=== PATIENT | male | born 1965 | race Caucasian/White ===

== ENCOUNTER 2022-01-03 22:49 | Inpatient (IN) | payer BC ==
[~2022-01-03] VITALS: Ht 167.6 cm; Wt 72.5 kg
[~2022-01-03 22:49] MED LIST: Prinivil10 MG PO
[2022-01-03 23:30] LABS: BASOPHILS ABSOLUTE AUTO 0.08 K/mm3 (0.00-0.23); BASOPHILS PERCENT AUTO 1 % (0-2); EOSINOPHILS ABSOLUTE AUTO 0.16 K/mm3 (0.00-0.68); EOSINOPHILS PERCENT AUTO 2 % (0-6); Hematocrit 48.9 % (37.0-53.0); Hemoglobin 16.4 g/dL (13.5-17.5); IMMATURE GRAN ABSOLUTE AUTO 0.03 K/mm3 (0.00-0.10); IMMATURE GRAN PERCENT AUTO 0 % (0-1); LYMPHOCYTES ABSOLUTE AUTO 3.45 K/mm3 (0.84-5.20); LYMPHOCYTES PERCENT AUTO 32 % (21-46); MONOCYTES ABSOLUTE AUTO 1.23 K/mm3 (0.16-1.47); MONOCYTES PERCENT AUTO 12 % (4-13); Mean Corpuscular HGB 31.1 pg (26.0-34.0); Mean Corpuscular HGB Conc 33.5 g/dL (31.5-36.5); Mean Corpuscular Volume 93 fL (80-100); Mean Platelet Volume 9.9 fL (9.1-12.4); NEUTROPHILS ABSOLUTE AUTO 5.77 K/mm3 (1.96-9.15); NEUTROPHILS PERCENT AUTO 54 % (41-73); Platelet Count 212 K/mm3 (150-400); RDW Coefficient Variation 11.9 % (11.7-14.2); RDW Standard Deviation 40.5 fL (35.1-46.3); Red Blood Cell Count 5.27 M/mm3 (4.30-5.90); White Blood Cell Count 10.72 K/mm3 (4.00-11.30)
[2022-01-03 23:48] LABS: Albumin, Blood 3.8 g/dL (3.4-5.0); Bilirubin, Total 0.6 mg/dL (0.1-1.0); Calcium, Blood 9.3 mg/dL (8.5-10.1); Creatinine, Blood 0.83 mg/dL (0.60-1.20); Globulin, Blood 3.7 g/dL (2.2-4.0); Potassium, Blood 3.6 mmol/L (3.5-5.5); Total Protein, Blood 7.5 g/dL (6.4-8.2)
--- NOTE | 2022-01-04 06:19 | NUR ---
SHIFT SUMMARY: GENERAL: PATIENT ARRIVES IN STABLE CONDITION TO UNIT FROM ED AT APPROX 0415. NEURO: ORIENTED, VERY PLEASANT. AFEBRILE. DENIES PAIN OR PARESTHESIA. CARDS: SR; BASELINE HTN. PRN HYDRALAZINE FOR SBP >160. NO EDEMA NOTED. RESP: SPO2 >90% ON RA, LS CLEAR AND DIMINISHED IN BASES. MSK: DEMONSTRATES ADEQUATE STRENGTH AMBULATING. SBA W/INTERMITTENT DIZZINESS. INTEG: WDL, NO CONCERNS. LOW RISK MIN. GI/: REPORTS BM 01/03; VOIDING WDL. OTHER: BIPAP AT BEDSIDE. PT DECLINED FLU VACCINE.
--- NOTE | 2022-01-04 17:18 | NUR ---
SHIFT SUMMARY NO ACUTE CHANGES THIS SHIFT. PT REMAINS AWAKE, ALERT, AND ORIENTED. PT HAS DENIED ANY DIFFICULTY BREATHING OR WEAKNESS. VITAL SIGNS STABLE. PT HAS REMAINED ON ROOM AIR THROUGHOUT THE SHIFT. PT UP TO TOILET WITH SBA. PT REPOSITIONS SELF IN BED INDEPENDENTLY. IV SALINE LOCKED. PT TAKING PO INTAKE WELL. FAMILY AT BEDSIDE THIS AFTERNOON. WILL CONTINUE TO MONITOR AND REPORT OFF TO ONCOMING RN.
--- NOTE | 2022-01-04 19:00 | NUR ---
ASSUMED CARE ASSUMED CARE OF PATIENT. AWAKE AND ALERT, VISITING WITH FAMILY. ORIENTED X 3 AND COOPERATIVE WITH CARE. UP TO BR WITH STANDBY ASSIST. C/O MILD WEAKNESS, BUT GAIT IS STEADY. DENIES C/O PAIN OR DISCOMFORT. RESPIRATIONS EVEN AND UNLABORED. RA SATS STABLE. MONITOR SHOWS NSR, RATE 60-70s. BP STABLE. SEE SHIFT ASSESSMENT FOR FULL ASSESSMENT.
--- NOTE | 2022-01-05 06:39 | NUR ---
SHIFT SUMMARY NO ACUTE CHANGES DURING NOC. SLEPT WHEN UNDISTURBED. RA SATS STABLE AND RESPIRATIONS ARE EVEN AND UNLABORED. BP STABLE. HR 50s-70s. AFEBRILE. UP TO TOILET INDEPENDENTLY WITHOUT DIFFICULTY. DENIES C/O PAIN OR DISCOMFORT. WILL REPORT TO ONCOMING RN WHEN AVAILABLE.
--- NOTE | 2022-01-05 09:14 | NUR ---
Assumed care of pt at 0700. Report received from Marcela CASTILLO. Pt A&O x 4. Answers questions, follows commands, verbalizes needs. Pleasant and cooperative with care. SpO2 90% or greater RA. Pt states he is feeling back to his usual self and sets goal to take a shower and ambulate around unit today.
--- NOTE | 2022-01-05 15:46 | NUR ---
Reached out to Dr López as he has not been in to see patient today. Patient updated. Patient denies need at this time. SpO2 90% or greater RA. BP and HR stable. Care transferred to Ronit CASTILLO.
--- NOTE | 2022-01-05 18:09 | NUR ---
SHIFT SUMMARY NO ACUTE CHANGES SINCE REPORT FROM KEERTHI CASTILLO. PT AMB TO SHOWER s DIFFICULTY. VISITING c FAMILY. DENIES NEEDS. WILL CONTINUE TO MONITOR UNTIL REPORT TO ONCOMING NURSE.
[2022-01-06 03:49] LABS: BASOPHILS ABSOLUTE AUTO 0.03 K/mm3 (0.00-0.23); BASOPHILS PERCENT AUTO 0 % (0-2); EOSINOPHILS PERCENT AUTO 0 % (0-6); Hematocrit 44.2 % (37.0-53.0); IMMATURE GRAN ABSOLUTE AUTO 0.09 K/mm3 (0.00-0.10); IMMATURE GRAN PERCENT AUTO 0 % (0-1); LYMPHOCYTES ABSOLUTE AUTO 1.23 K/mm3 (0.84-5.20); LYMPHOCYTES PERCENT AUTO 6 % (21-46); MONOCYTES PERCENT AUTO 3 % (4-13); Mean Corpuscular HGB 31.2 pg (26.0-34.0); Mean Corpuscular HGB Conc 33.9 g/dL (31.5-36.5); Mean Corpuscular Volume 92 fL (80-100); Mean Platelet Volume 10.8 fL (9.1-12.4); NEUTROPHILS ABSOLUTE AUTO 19.17 K/mm3 (1.96-9.15); NEUTROPHILS PERCENT AUTO 91 % (41-73); Platelet Count 178 K/mm3 (150-400); RDW Coefficient Variation 11.9 % (11.7-14.2); RDW Standard Deviation 40.1 fL (35.1-46.3); Red Blood Cell Count 4.81 M/mm3 (4.30-5.90); White Blood Cell Count 21.12 K/mm3 (4.00-11.30)
[2022-01-06 04:06] LABS: Albumin, Blood 2.9 g/dL (3.4-5.0); Albumin/Globulin Ratio 0.8 (0.8-1.8); Bilirubin, Total 0.7 mg/dL (0.1-1.0); Bun/Creatinine Ratio 40.1 (12.0-20.0); Calcium, Blood 8.9 mg/dL (8.5-10.1); Creatinine, Blood 0.85 mg/dL (0.60-1.20); Globulin, Blood 3.8 g/dL (2.2-4.0); Magnesium, Blood 2.3 mg/dL (1.6-2.4); Potassium, Blood 3.9 mmol/L (3.5-5.5); Total Protein, Blood 6.7 g/dL (6.4-8.2)
--- NOTE | 2022-01-06 05:28 | NUR ---
NO EVENTS OVERNIGHT. PT VSS. PT SLEEPING MOST OF THE NIGHT. NO DIZZINESS OR INCREASE OF WEAKNESS.
--- NOTE | 2022-01-06 07:15 | NUR ---
Assumed care at 0700. Report received from Petrona CASTILLO. Pt A&O x 4. Answers questions, follows commands, verbalizes needs. Pleasant and cooperative with care. SpO2 90% or greater RA. Respirations even and unlabored.
[2022-01-06] MEDS ORDERED: LISINOPRIL-HCT1 EAC1 PO (13:06)
[2022-01-06] MEDS ORDERED: PYRI60 PO (13:07)
--- NOTE | 2022-01-06 14:41 | NUR ---
Patient discharged from unit at 1320 accompanied by family member. Orders given by Dr López. Pt provided with return to work note for Monday. Prescription for pyridostigmine faxed to [facility] in [place], [place], per patient request as he has had trouble obtaining this medication in [facility]. IV access removed. Education provided.
== END 2022-01-06 13:20 | disposition home or self-care (01) | DRG 56 ==
LOC: ER 22:49 → ICUW 01-04 03:37 → ICUE 01-04 03:37
PROVIDERS: Emergency Medicine; Internal Medicine; ADMIT Internal Medicine
PROC: 5A09357 Assistance with Respiratory Ventilation, Less than 24 Consecutive Hours, Continuous Positive Airway Pressure (ICD-10-PCS; principal; 2022-01-04)
DX: G70.01 Myasthenia gravis with (acute) exacerbation (principal); J96.01 Acute respiratory failure with hypoxia; I10 Essential (primary) hypertension; E78.5 Hyperlipidemia, unspecified; L80 Vitiligo; M19.09 Primary osteoarthritis, other specified site; Z79.811 Long term (current) use of aromatase inhibitors
CPT/HCPCS: 36415; 71045; 80053; 83735; 83880; 84484; 85025; 93005; 93010; 94660; 96372; 96374; 99285-25; A9270; J1100; J1569; J1650; J2930

== ENCOUNTER 2024-09-21 09:13 | Inpatient (IN) | payer BC ==
[~2024-09-21] VITALS: Ht 167.6 cm; Wt 78.0 kg
[~2024-09-21 09:13] MED LIST changes: +LISINOPRIL-HCT1 EAC1 PO; +PYRI60 PO
[2024-09-21 09:37] VITALS: BP 173/109
[2024-09-21 09:42] VITALS: BP 144/96
[2024-09-21] MEDS ORDERED: PRED5 PO (09:44)
[2024-09-21 10:57] LABS: BASOPHILS ABSOLUTE AUTO 0.06 K/mm3 (0.00-0.23); BASOPHILS PERCENT AUTO 1 % (0-2); EOSINOPHILS ABSOLUTE AUTO 0.06 K/mm3 (0.00-0.68); EOSINOPHILS PERCENT AUTO 1 % (0-6); Hematocrit 52.3 % (37.0-53.0); Hemoglobin 17.7 g/dL (13.5-17.5); IMMATURE GRAN ABSOLUTE AUTO 0.02 K/mm3 (0.00-0.10); IMMATURE GRAN PERCENT AUTO 0 % (0-1); LYMPHOCYTES ABSOLUTE AUTO 2.30 K/mm3 (0.84-5.20); LYMPHOCYTES PERCENT AUTO 26 % (21-46); MONOCYTES ABSOLUTE AUTO 0.87 K/mm3 (0.16-1.47); MONOCYTES PERCENT AUTO 10 % (4-13); Mean Corpuscular HGB Conc 33.8 g/dL (31.5-36.5); Mean Corpuscular Volume 92 fL (80-100); NEUTROPHILS ABSOLUTE AUTO 5.68 K/mm3 (1.96-9.15); NEUTROPHILS PERCENT AUTO 63 % (41-73); NRBC ABSOLUTE 0.00 K/mm3 (0.00-0.02); NRBC Auto 0.0 /100 WBC (0.0-0.2); Platelet Count 181 K/mm3 (150-400); RDW Coefficient Variation 11.9 % (11.7-14.2); RDW Standard Deviation 39.6 fL (35.1-46.3)
[2024-09-21] MEDS ORDERED: IMMUN GLOB G(IGG)/PRO/IGA 0-50 100 ML IV SCH (11:00)
[2024-09-21 11:17] VITALS: BP 150/96
[2024-09-21 12:37] LABS: Alanine Aminotransfer (ALT/SGP 36.0 U/L (12-78); Albumin, Blood 3.6 g/dL (3.4-5.0); Albumin/Globulin Ratio 1.1 (0.8-1.8); Anion Gap 7.0 mmol/L (3-11); Aspartate Aminotrans (AST/SGOT 27.0 U/L (12-37); Bilirubin, Total 0.6 mg/dL (0.1-1.0); Blood Urea Nitrogen 15.0 mg/dL (8-24); CO2, Blood 29.0 mmol/L (21-32); Calcium, Blood 8.9 mg/dL (8.5-10.1); Chloride, Blood 107.0 mmol/L (98-108); Creatinine, Blood 0.99 mg/dL (0.60-1.20); Globulin, Blood 3.3 g/dL (2.2-4.0); Glucose, Blood 102.0 mg/dL (70-99); Potassium, Blood 3.8 mmol/L (3.5-5.5); Sodium, Blood 139.0 mmol/L (136-145); Thyroid Stimulating Hormone 1.92 uIU/mL (0.360-4.800); Total Protein, Blood 6.9 g/dL (6.4-8.2)
[2024-09-21 15:34] VITALS: BP 148/94
--- NOTE | 2024-09-21 18:06 | NUR ---
DAY SHIFT SUMMARY MARINA ARRIVED TO THE UNIT AROUND 0930 - HERE FOR MG EXACERBATION. HX OF ICU AND BIPAP STAY WITH PREVIOUS ADMISSION. HE IS ORIENTED X4, VSS ON RA, SR ON TELEMETRY. DENIES PAIN OR DISCOMFORT. PLEASANT AND COOPERATIVE. GENERALIZED WEAKNESS T/O. ABLE TO MAKE NEEDS KNOWN. BED IN LOWEST POSITION, CALL LIGHT WITHIN RISK. S/O MEREDITH IN ROOM AND BOTH UPDATED ON PLAN OF CARE. IVIG GIVEN THIS SHIFT AND TOLERATED WELL.
[2024-09-21 19:53] VITALS: BP 140/93
[2024-09-21 23:54] VITALS: BP 136/100
[2024-09-22 03:54] VITALS: BP 142/103
[2024-09-22 05:10] LABS: BASOPHILS ABSOLUTE AUTO 0.08 K/mm3 (0.00-0.23); BASOPHILS PERCENT AUTO 1 % (0-2); EOSINOPHILS ABSOLUTE AUTO 0.17 K/mm3 (0.00-0.68); EOSINOPHILS PERCENT AUTO 2 % (0-6); Hematocrit 48.0 % (37.0-53.0); Hemoglobin 16.3 g/dL (13.5-17.5); IMMATURE GRAN ABSOLUTE AUTO 0.03 K/mm3 (0.00-0.10); IMMATURE GRAN PERCENT AUTO 0 % (0-1); LYMPHOCYTES ABSOLUTE AUTO 2.41 K/mm3 (0.84-5.20); LYMPHOCYTES PERCENT AUTO 30 % (21-46); MONOCYTES ABSOLUTE AUTO 1.27 K/mm3 (0.16-1.47); MONOCYTES PERCENT AUTO 16 % (4-13); Mean Corpuscular HGB Conc 34.0 g/dL (31.5-36.5); Mean Corpuscular Volume 92 fL (80-100); NEUTROPHILS ABSOLUTE AUTO 4.09 K/mm3 (1.96-9.15); NEUTROPHILS PERCENT AUTO 51 % (41-73); NRBC ABSOLUTE 0.00 K/mm3 (0.00-0.02); NRBC Auto 0.0 /100 WBC (0.0-0.2); Platelet Count 159 K/mm3 (150-400); RDW Coefficient Variation 11.9 % (11.7-14.2); RDW Standard Deviation 39.8 fL (35.1-46.3)
[2024-09-22 05:32] LABS: Alanine Aminotransfer (ALT/SGP 29.0 U/L (12-78); Albumin, Blood 3.3 g/dL (3.4-5.0); Albumin/Globulin Ratio 0.8 (0.8-1.8); Anion Gap 7.0 mmol/L (3-11); Aspartate Aminotrans (AST/SGOT 20.0 U/L (12-37); Bilirubin, Total 0.8 mg/dL (0.1-1.0); Blood Urea Nitrogen 13.0 mg/dL (8-24); CO2, Blood 27.0 mmol/L (21-32); Calcium, Blood 8.6 mg/dL (8.5-10.1); Chloride, Blood 107.0 mmol/L (98-108); Creatinine, Blood 0.97 mg/dL (0.60-1.20); Globulin, Blood 4.0 g/dL (2.2-4.0); Glucose, Blood 89.0 mg/dL (70-99); Magnesium, Blood 2.1 mg/dL (1.6-2.4); Potassium, Blood 3.4 mmol/L (3.5-5.5); Sodium, Blood 138.0 mmol/L (136-145); Total Protein, Blood 7.3 g/dL (6.4-8.2)
--- NOTE | 2024-09-22 06:07 | NUR ---
SHIFT SUMMARY PT ALERT AND ORIENTED X4, FOLLOWS COMMANDS, ABLE TO MAKE NEEDS KNOWN, DENIES C/O PAIN, SOB OR CP, VSS, AFEBRILE, RESP EVEN AND UNLABORED ON RA, AMBULATES TO BATHROOM WITHOUT ASSIST, GAIT STEADY, VOIDS WITHOUT DIFFICULTY, PIV TO RIGHT FA PATENT AND CLAMPED, SIDE RAILS UP X2, CALL LIGHT IN REACH
[2024-09-22 08:04] VITALS: BP 120/80
[2024-09-22] MEDS ORDERED: LISI20 PO (08:56)
[2024-09-22] MEDS ORDERED: Enoxaparin 40 MG/0.4 ML SYR SC SCH (09:00)
[2024-09-22 12:00] VITALS: BP 140/95
[2024-09-22 17:14] VITALS: BP 122/81
[2024-09-22 20:33] VITALS: BP 119/77
--- NOTE | 2024-09-22 22:14 | NUR ---
TRANSFER OF CARE NOTE REPORT GIVEN BY THIS RN TO MEDICAL FLOOR PRASANNA @ APPROX 2200. PT ESCORTED TO ROOM 361 BY MEDICAL STAFF @ APPROX 2210. PT IS A&O X4, TO ABLE TO MAKE NEEDS KNOWN, IND IN ROOM, REPOSITIONING SELF IN BED, DENIES ANY NUMBNESS T/O THIS SHIFT, REPORTS MILD GENERALIZED WEAKNESS. CONTINUOUS SPO2, SPO2 GREATER 90% ON RA, LUNGS SOUND CLEAR T/O, NO SIGNS OF RESPIRATORY DISTRESS, PT DENIES SOB OR DIFFICULTY BREATHING. HR 50-60 S, PULSES PRESENT T/O, PT DENEIS CHEST P/P T/O THIS SHIFT, BP STABLE WITH MAP GREATER THAN 65. BOWEL TONES PRESENT IN ALL 4Q, PT DENIES FEELINGS OF NAUSEA, OR CONSTIPATION. PT VOIDING IND TO BRP. BED LOWEST POSITION, CALL LIGHT IN REACH, AWAITING TO GIVE REPORT TO ONCOMING RN.
[2024-09-22 22:23] VITALS: BP 134/85
--- NOTE | 2024-09-22 22:44 | NUR ---
TRANSFER FROM PCU TO MED FLOOR RM 361 REPORT RECEIVED FROM BEAM WARPER AIME. PT ARRIVED IN A W/C AND TRANSFERRED INDEPENDENTLY TO THE HOSPITAL BED. PT BROUGHT ALL HIS BELONINGS WITH HIM. EDUCATED IT SERVICE MANAGER LIGHT AND FALL PRECAUTIONS. PT IS A/O X4, INDEPENDENT, CONTINENT, ABLE TO MAKE HIS NEEDS KNOWN AND COOPERATIVE WITH CARE. VSS. ON RA. NO CONCERNS OR COMPLAINTS UPON ARRIVING TO THE MEDICAL FLOOR. BED AT THE LOWEST POSITION, CALL LIGHT W/I REACH.
[2024-09-23 05:06] VITALS: BP 112/89
[2024-09-23 07:29] VITALS: BP 119/89
--- NOTE | 2024-09-23 13:13 | NUR ---
ASSUMED CARE PLEASENT A/O PT WHO IS IND IN ROOM, NO NOTIBLE ISSUES FROM MYASTHENIA GRAVIS. IMMUNO THERAPY BE STARTED AT 1100. CALL LIGHT WITHIN REACH CALLS APPROPRIATLY 1030 IGG STARTED AND THEN INCREASED, PT FREDA WELL NO CHANGE IN CONDITION.
--- NOTE | 2024-09-23 17:29 | NUR ---
3 DOSES OF IVIG GIVEN, PT DOING VERY WELL. NO NEURO DEFICITS JUST C/O WEAKNESS FAMILY AT BEDSIDE. NO CHANGE IN CONDITON
[2024-09-23 17:44] VITALS: BP 135/92
[2024-09-23 20:37] VITALS: BP 131/92
[2024-09-24 02:39] VITALS: BP 122/79
--- NOTE | 2024-09-24 05:02 | NUR ---
SHIFT SUMMARY NOC PT A/O X 4. PLEASANT AND COOPERATIVE WITH CARE. VSS. NO ACUTE CHANGES TO REPORT. PT RECEIVING RX PER EMAR FOR MYATHENIA GRAVIS. PT REPORTS FEELING LESS FATIGUED AND HAS FINISHED 11/04 DOSES OF PRIVOGEN. PT EXPECTED TO DISCHARGE MONDAY ONCE TREATMENT HAS BEEN COMPLETED. PT CURRENTLY RESTING WITH BED IN LOWEST POSITION, AND CALL LIGHT WITHIN REACH.
[2024-09-24 07:34] VITALS: BP 117/87
[2024-09-24 15:36] VITALS: BP 131/89
--- NOTE | 2024-09-24 18:28 | NUR ---
SHIFT SUMMARY NO ACUTE CHANGES, A/Ox4, INDEPENDENT IN ROOM, USES CALL SYSTEM APPROPRIATELY. PT DENIES PAIN. PT TOLERATED PRIVIGEN ADMINISTRATION, PT HAS 3 MORE DOSES TO COMPLETE. LIKELY DISCHARGE ON MONDAY PER MARY. PT CURRENTLY RESTING IN ROOM WITH VISITORS PRESENT. IV SALINE LOCKED.
[2024-09-24 20:28] VITALS: BP 131/87
[2024-09-25 06:13] VITALS: BP 113/78
--- NOTE | 2024-09-25 06:42 | NUR ---
SHIFT SUMMARY A&OX4. ABLE TO MAKE ALL NEEDS KNOWN. SLEPT WELL DURING THE NIGHT. DENIES ANY NEW OR RESIDUAL S/S OF MYESTHENIA GRAVIS. PT REMAINS INDEPENDENT IN HIS ROOM. PT CURRENTLY RESTING IN BED AT LOWEST POSITION WITH CALL LIGHT WITHIN REACH. PT VOICES HE WOULD LIKE TO GO HOME TODAY HIS S/S HAVE RESOLVED.
[2024-09-25 07:50] VITALS: BP 133/90
[2024-09-25 15:10] VITALS: BP 144/98
--- NOTE | 2024-09-25 18:41 | NUR ---
DISCHARGE: PT D/C @ 1815 INDEPENDENTLY WITH GIRLFRIEND. FINAL DOSES OF IVIG ADMINISTERED W/O COMPLICATIONS. PLEASANT AND COOPERATIVE WITH CARE. INDEPENDENT IN ROOM. IV REMOVED BY MEDICAL CODING INSTRUCTOR W/O COMPLICATIONS. NO QUESTIONS AT TIME OF D/C.
== END 2024-09-25 18:17 | disposition home or self-care (01) | DRG 57 ==
LOC: PCU 09:13 → MEDS 10:04 → PCU 10:04 → MEDS 09-22 22:14
PROVIDERS: ADMIT Internal Medicine
PROC: 30233S1 Transfusion of Nonautologous Globulin into Peripheral Vein, Percutaneous Approach (ICD-10-PCS; principal; 2024-09-21)
DX: G70.01 Myasthenia gravis with (acute) exacerbation (principal); I10 Essential (primary) hypertension; E11.9 Type 2 diabetes mellitus without complications; K21.9 Gastro-esophageal reflux disease without esophagitis; H90.3 Sensorineural hearing loss, bilateral; E87.6 Hypokalemia; Z79.52 Long term (current) use of systemic steroids
CPT/HCPCS: 36415; 80053; 83735; 84443; 85025; A9270; J1459; J1650